=== PATIENT | female | born 1970 | race Caucasian/White ===

== ENCOUNTER 2021-08-17 07:28 | Outpatient (CLI) | payer BC ==
[2021-08-17 08:14] LABS: Hemoglobin 13.5 g/dL (12.0-15.5); Mean Corpuscular HGB CONC 35.2 g/dL (32.0-36.0); Mean Corpuscular Hemoglobin 32.1 pg (27.0-33.0); Mean Corpuscular Volume 91.4 fl (81.6-98.3); Mean Platelet Volume 9.6 fl (7.4-10.4); Platelet Count 340 10x3/uL (150-450); RBC Distribution Width 12.5 % (11.5-14.5); White Blood Cell (WBC) Count 7.5 10x3/uL (3.5-10.5)
[2021-08-17 08:58] LABS: BHCG - Serum Negative (NEGATIVE); Pregs Control Background? CLEAR/WHITE (CLR/WHITE); Pregs Control Bar Appear? YES (CONTROL BAR)
[2021-08-17 09:05] LABS: Anion Gap 14 mmol/L (10-20); BUN (Urea Nitrogen) 12 mg/dL (7.0-18.7); Calc. Creatinine Clearance 0 mL/min (70-130); Calcium 9.4 mg/dL (7.8-10.44); Carbon Dioxide 24 mmol/L (22-29); Chloride 106 mmol/L (98-107); Glucose 83 mg/dL (70-105); Potassium 4.1 mmol/L (3.5-5.1); Sodium 140 mmol/L (136-145)
== END 2021-08-17 07:29 | disposition home or self-care (01) ==
LOC: CSHLAB 07:28
PROVIDERS: ATTEND Student in an Organized Health Care Education/Training Program
DX: Z01.812 Encounter for preprocedural laboratory examination (principal); Z20.822 Contact with and (suspected) exposure to COVID-19; N87.9 Dysplasia of cervix uteri, unspecified
CPT/HCPCS: 80048; 84703; 85027; 86850; 86900; 86901; U0003; U0005

== ENCOUNTER 2021-08-22 08:20 | Day surgery (SDC) | payer BC ==
[2021-08-17 08:14] LABS: Hemoglobin 13.5 g/dL (12.0-15.5); Mean Corpuscular HGB CONC 35.2 g/dL (32.0-36.0); Mean Corpuscular Hemoglobin 32.1 pg (27.0-33.0); Mean Corpuscular Volume 91.4 fl (81.6-98.3); Mean Platelet Volume 9.6 fl (7.4-10.4); Platelet Count 340 10x3/uL (150-450); RBC Distribution Width 12.5 % (11.5-14.5); White Blood Cell (WBC) Count 7.5 10x3/uL (3.5-10.5)
[2021-08-17 08:58] LABS: BHCG - Serum Negative (NEGATIVE); Pregs Control Background? CLEAR/WHITE (CLR/WHITE); Pregs Control Bar Appear? YES (CONTROL BAR)
[2021-08-17 09:05] LABS: Anion Gap 14 mmol/L (10-20); BUN (Urea Nitrogen) 12 mg/dL (7.0-18.7); Calc. Creatinine Clearance 0 mL/min (70-130); Calcium 9.4 mg/dL (7.8-10.44); Carbon Dioxide 24 mmol/L (22-29); Chloride 106 mmol/L (98-107); Glucose 83 mg/dL (70-105); Potassium 4.1 mmol/L (3.5-5.1); Sodium 140 mmol/L (136-145)
[2021-08-17 14:48] VITALS: BMI 30.9
[2021-08-22] MEDS ORDERED: CeleCOXIB 100 MG CAP ONE (08:51)
[2021-08-22] MEDS ORDERED: Lidocaine 1% MPF 2 ML VIAL ONE (08:51)
[2021-08-22] MEDS ORDERED: Gabapentin 300 MG CAP ONE (08:51)
[2021-08-22] MEDS ORDERED: Pantoprazole 40 MG VIAL ONE (08:52)
[2021-08-22] MEDS ORDERED: Bupivacaine PF 0.5% 30 ML VIAL ONE (09:35)
[2021-08-22] MEDS ORDERED: EPINEPHrine 1 MG/ML AMP ONE (09:35)
[2021-08-22] MEDS ORDERED: CEFAZOLIN 1 GM VIAL ONE (10:11)
[2021-08-22] MEDS ORDERED: Dexamethasone 4 mg/ml Vial ONE (10:25)
[2021-08-22] MEDS ORDERED: PROPOFOL 20 ML ONE (10:25)
[2021-08-22] MEDS ORDERED: Lidocaine 1% PF 5 ML VIAL ONE (10:25)
[2021-08-22] MEDS ORDERED: Ondansetron PF 4 MG/2 ML Vial ONE (10:25)
[2021-08-22] MEDS ORDERED: Fentanyl 250 MCG/5 ML VIAL ONE (10:25)
[2021-08-22] MEDS ORDERED: Glycopyrrolate 0.2 MG/ML 5 ML SYRINGE ONE (10:56)
[2021-08-22] MEDS ORDERED: Promethazine HCl 25 MG/ML VIAL ONE (11:09)
[2021-08-22] MEDS ORDERED: Ketorolac Tromethamine 30 MG/ML VIAL ONE (11:11)
[2021-08-22] MEDS ORDERED: Fentanyl 100 MCG/2 ML VIAL ONE (12:38)
[2021-08-22] MEDS ORDERED: HYDROcodone/Acetaminophen 5/325 mg Tablet ONE (13:05)
== END 2021-08-22 15:45 | disposition home or self-care (01) ==
LOC: CSHSDC 08:20
PROVIDERS: ATTEND Student in an Organized Health Care Education/Training Program
PROC: 0UT94ZZ Resection of Uterus, Percutaneous Endoscopic Approach (ICD-10-PCS; principal; 2021-08-22)
PROC: 0UT74ZZ Resection of Bilateral Fallopian Tubes, Percutaneous Endoscopic Approach (ICD-10-PCS; principal; 2021-08-22)
PROC: 8E0W4CZ Robotic Assisted Procedure of Trunk Region, Percutaneous Endoscopic Approach (ICD-10-PCS; principal; 2021-08-22)
DX: N80.0 Endometriosis of uterus (principal); D25.9 Leiomyoma of uterus, unspecified; N83.292 Other ovarian cyst, left side; Z79.1 Long term (current) use of non-steroidal anti-inflammatories (NSAID); Z79.899 Other long term (current) drug therapy; Z20.822 Contact with and (suspected) exposure to COVID-19
CPT/HCPCS: 36415; 80048; 84703; 85027; 86850; 86900; 86901; 88307; C9113; J0171; J0690; J1100; J1885; J2405; J2550; J2704; J3010; S0020; U0003; U0005

== ENCOUNTER 2025-02-18 13:58 | Outpatient (CLI) | payer BC | END 2025-02-18 13:59 | disposition home or self-care (01) | LOC: CSHWCC 13:58 | PROVIDERS: ATTEND Nurse Practitioner Family | DX: H91.22 Sudden idiopathic hearing loss, left ear (principal) ==

== ENCOUNTER 2025-02-18 15:38 | Outpatient (CLI) | payer BC | END 2025-02-18 15:39 | disposition home or self-care (01) | LOC: CSHRAD 15:38 | PROVIDERS: ATTEND Nurse Practitioner Family | DX: H91.22 Sudden idiopathic hearing loss, left ear (principal) | CPT/HCPCS: 71046 ==